=== PATIENT | male | born 1960 | race Caucasian/White ===

== ENCOUNTER 2018-06-20 12:29 | Emergency (ER) | payer MEDICARE, MEDICAID ==
[~2018-06-20] VITALS: Ht 175.3 cm; Wt 90.0 kg
[2018-06-20 13:33] LABS: PARTIAL THROMBOPLASTIN TIME 25 SECONDS (22-32); PROTHROMBIN TIME 9.9 SECONDS (9.0-12.0)
[2018-06-20 13:37] LABS: ALANINE AMINOTRANSFERASE 26 U/L (12-78); ALBUMIN 3.1 G/DL (3.4-5.0); ALBUMIN/GLOBULIN RATIO 0.9 (1.1-1.5); ALKALINE PHOSPHATASE 99 IU/L (46-116); ANION GAP 5 (8-16); ASPARTATE AMINO TRANSFERASE 16 U/L (10-37); BASOPHILS % (AUTO) 0.3 % (0-1); BILIRUBIN,TOTAL 0.2 MG/DL (0.1-1.0); BLOOD UREA NITROGEN 20 MG/DL (7-18); BUN/CREATININE RATIO 19.8 (5.4-32.0); CALCIUM 8.6 MG/DL (8.5-10.1); CHLORIDE 103 MMOL/L (99-107); CREATININE 1.01 MG/DL (0.60-1.10); EOSINOPHILS # (AUTO) 0.3 X10'3 (0-0.9); GLUCOSE 126 MG/DL (70-104); HEMATOCRIT 36.8 % (42.0-52.0); HEMOGLOBIN 12.6 g/dl (14.0-17.9); LYMPHOCYTES # (AUTO) 1.5 X10'3 (1.1-4.8); LYMPHOCYTES % (AUTO) 19.2 % (21-51); MEAN CORPUSCULAR HEMOGLOBIN 28.8 PG (27.0-31.0); MEAN CORPUSCULAR HGB CONC 34.2 % (33.0-36.5); MEAN CORPUSCULAR VOLUME 84.2 FL (78-98); MEAN PLATELET VOLUME 8.4 FL (7.4-10.4); MONOCYTES # (AUTO) 0.8 X10'3 (0-0.9); MONOCYTES % (AUTO) 10.6 % (2-12); NEUTROPHILS # (AUTO) 5.1 X10'3 (1.8-7.7); NEUTROPHILS % (AUTO) 65.9 % (42-75); PLATELET COUNT 246 X10'3 (140-440); POTASSIUM 4.1 MMOL/L (3.5-5.1); RED BLOOD COUNT 4.37 X10'6 (4.70-6.10); RED CELL DISTRIBUTION WIDTH 14.5 % (11.5-14.5); SODIUM 139 MMOL/L (135-145); TOTAL CARBON DIOXIDE 31.4 MMOL/L (24-32); TOTAL PROTEIN 6.7 G/DL (6.4-8.2); WHITE BLOOD COUNT 7.8 X10'3 (4.5-11.0); eGFR 76 ML/MIN
[2018-06-20] MEDS ORDERED: PANT-47 PO (15:02)
[2018-06-20] MEDS ORDERED: BUPR1FIL17 SL (15:02)
[2018-06-20] MEDS ORDERED: GABA-534 PO (15:02)
[2018-06-20] MEDS ORDERED: LURA40TA3 PO (15:02)
[2018-06-20] MEDS ORDERED: ONDA4TAB9 SL (15:02)
[2018-06-20] MEDS ORDERED: GABA800T2 PO (15:02)
[2018-06-20] MEDS ORDERED: TEMA30CA PO (15:02)
[2018-06-20] MEDS ORDERED: ESZO1TAB8 PO (15:02)
[2018-06-20] MEDS ORDERED: potassium Cl 20 mEq SR tablet PO STA (15:13)
[2018-06-20] MEDS ORDERED: furosemide 10 MG/1 ML 10ml inj IV ONE (15:15)
[2018-06-20] MEDS ORDERED: furosemide 40mg/4ml inj IV ONE (15:15)
[2018-06-20] MEDS ORDERED: furosemide 40mg tablet PO ONE (15:40)
[2018-06-20] MEDS ORDERED: furosemide 20MG tablet PO ONE (15:40)
[2018-06-20 15:52] VITALS: BP 105/72
== END 2018-06-20 15:54 | disposition home or self-care (01) ==
LOC: ER 12:29
DX: D64.9 Anemia, unspecified (principal); R07.89 Other chest pain; R60.9 Edema, unspecified; K21.9 Gastro-esophageal reflux disease without esophagitis; G89.29 Other chronic pain; Z56.0 Unemployment, unspecified; Z88.8 Allergy status to other drugs, medicaments and biological substances; Z79.899 Other long term (current) drug therapy
CPT/HCPCS: 36415; 71045; 80053; 83880; 84484; 85025; 85610; 85730; 93005; 99285